=== PATIENT | female | born 1995 | race African-American/Black ===

== ENCOUNTER 2021-11-30 06:29 | Inpatient (IN) | payer OTHER ==
[2021-11-30] VITALS (17 sets, daily range): BP systolic 112–133; BP diastolic 56–81
[~2021-11-30] VITALS: Ht 160 cm; Wt 43.3 kg
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
[2021-11-30 07:30] LABS: BASOPHILS % (AUTO) 0.2 % (0.0-2.0); HEMATOCRIT 38 % (33-45); HEMOGLOBIN 12.3 g/dL (11.5-14.8); LYMPHOCYTES # (AUTO) 0.8 K/uL (0.8-4.8); LYMPHOCYTES % (AUTO) 4.6 % (20.0-44.0); MEAN CORPUSCULAR HGB CONC 33 g/dl (31.0-36.0); MEAN CORPUSCULAR VOLUME 89 fL (82-100); MONOCYTES # (AUTO) 0.6 K/uL (0.1-1.30); MONOCYTES % (AUTO) 3.9 % (2.0-12.0); NEUTROPHILS # (AUTO) 15.2 K/uL (1.8-8.9); NEUTROPHILS % (AUTO) 91.3 % (43.0-81.0); PLATELET COUNT (AUTO) 410 K/uL (150-450); RED BLOOD CELL COUNT(AUTO) 4.21 MIL/uL (4.0-5.2); WHITE BLOOD COUNT (AUTO) 16.6 K/uL (4.3-11.0)
--- NOTE | 2021-11-30 07:30 | NUR ---
COVID SWAB DONE AND SENT TO LAB
[2021-11-30] MEDS ORDERED: IV NS 0.9% 1,000 ML BAG IV ONE ×2 (08:00→08:30)
[2021-11-30] MEDS ORDERED: LORAZEPAM INJ 2 MG/ML VIAL IV ONE (08:00)
[2021-11-30 08:06] LABS: CALCIUM, SERUM 9.5 mg/dL (8.5-10.1); CARBON DIOXIDE 11 mmol/L (21-32); CHLORIDE 101 mmol/L (98-107); CREATININE 1.6 mg/dL (0.6-1.3); GLUCOSE 82 mg/dL (74-106); POTASSIUM 3.3 mmol/L (3.5-5.1); SODIUM SERUM 141 mmol/L (136-145); UREA NITROGEN, BLOOD 55 mg/dL (7-18)
[2021-11-30 08:12] LABS: ALANINE AMINOTRANSFERASE 74 U/L (12-78); ALBUMIN 4.9 g/dL (3.4-5.0); ALKALINE PHOSPHATASE 55 U/L (46-116); ASPARTATE AMINOTRANSFERASE 113 U/L (15-37); BILIRUBIN,DIRECT 0.1 mg/dL (0.0-0.2); BILIRUBIN,TOTAL 0.7 mg/dL (0.2-1.0); TOTAL PROTEIN, SERUM 8.4 g/dL (6.4-8.2)
[2021-11-30] MEDS ORDERED: PIPERACILLIN /TAZOBACTAM 3.375 G in IV D5W 50 ML IV ONE (08:30)
[2021-11-30] MEDS ORDERED: PIPERACILLIN /TAZOBACTAM 3.375 G VIAL IV ONE (08:39)
--- NOTE | 2021-11-30 08:40 | NUR ---
MOVE SHEET SUBMITTED AND CALLED FOR ICU BED.
[2021-11-30 08:41] LABS: ABG BASE EXCESS -14.9 mmol/L; ABG PCO2 22.2 mmHg (35.0-45.0); ABG PH 7.273 (7.350-7.450); ABG PO2 108.9 mmHg (75.0-100.0); COHb 0.3 % (0.5-1.5); MetHb 0.4 % (0.0-1.5); O2Hb 96.3 % (94.0-97.0); SITE, ABG Left Brachial; VENT MODE, BG room air
[2021-11-30 08:52] LABS: ACETAMINOPHEN < 2 ug/ml (10-30); ALCOHOL, BLOOD < 3 mg/dL (0-0)
--- NOTE | 2021-11-30 08:59 | NUR ---
Pipelines Supervisor From [facility] Giovany [phone] called. Clinical Information Faxed to [phone]
[2021-11-30 09:11] LABS: SERUM AMMONIA 47 umol/L (11-32)
--- NOTE | 2021-11-30 09:15 | NUR ---
URINE COLLECTED AND SENT TO LAB
[2021-11-30 09:26] LABS: CREATINE KINASE, TOTAL 1797 U/L (26-192)
--- NOTE | 2021-11-30 09:30 | NUR ---
DR. LAO SPEAKING WITH MITZY GAMBOA.
--- NOTE | 2021-11-30 09:36 | NUR ---
[facility] CALLED SEED CLEANER OPERATOR PAGED.
--- NOTE | 2021-11-30 09:38 | NUR ---
GOT ICU BED 254
--- NOTE | 2021-11-30 09:49 | NUR ---
REPORT GIVEN TO HOUSTON HARGROVE OF ICU
[2021-11-30] MEDS ORDERED: IV NS 0.9% 1,000 ML IV SCH (10:00)
[2021-11-30] MEDS ORDERED: ACETAMINOPHEN 325 MG TABLET PO PRN (10:00)
[2021-11-30] MEDS ORDERED: MAGNESIUM HYDROXIDE 30 ML UDC PO PRN (10:00)
[2021-11-30] MEDS ORDERED: MAG HYDROX/AL HYDROX/SIMETH 30 ML UDC PO PRN (10:00)
[2021-11-30] MEDS ORDERED: ONDANSETRON HCL/PF 4 MG/2 ML VIAL IVP PRN (10:00)
--- NOTE | 2021-11-30 10:01 | NUR ---
TRANSFERRED TO BED 254 IN STABLE CONDITION
[2021-11-30 10:21] LABS: BILIRUBIN,URINE SMALL (NEGATIVE); COLOR,URINE YELLOW (YELLOW); LEUKOCYTE ESTERASE ,URINE NEGATIVE (NEGATIVE); NITRITE, URINE NEGATIVE (NEGATIVE); PROTEIN,URINE 30 mg/dl (NEGATIVE); UGLUCOSE NEGATIVE (NEGATIVE); UROBILINOGEN,URINE 0.2 EU/dL (0.2)
[2021-11-30] MEDS ORDERED: LORAZEPAM INJ 2 MG/ML VIAL IV PRN (10:30)
[2021-11-30 10:44] LABS: BACTERIA,URINE None seen /HPF (None Seen); WBC,URINE 0-2 /HPF (0-3)
[2021-11-30 10:45] LABS: SQUAMOUS EPITHELIAL CELL,UR Rare /HPF (None Seen)
[2021-11-30 10:46] LABS: HYALINE CASTS, URINE Rare /LPF (None Seen); MUCUS,URINE Few /LPF (None Seen)
[2021-11-30] MEDS: POTASSIUM CL. PREMIX PERIPHER. 50 ML IV SCH ×4 (11:26→16:48)
[2021-11-30] MEDS: ZOSYN IVPB 3.375 G in IV D5W 50ml IV SCH ×3 (13:29→23:09)
[2021-11-30] MEDS ORDERED: IV NS 0.9% 1,000 ML IV PRN (16:00)
[2021-11-30] MEDS: IV D5/ 0.9% NACL 1,000 ML IV SCH (18:46)
--- NOTE | 2021-11-30 20:00 | NUR ---
RN NOTE PATIENT RESTING IN BED, AWAKE, ALERT AND ORIENTED X2-3. PERIODS OF CONFUSION. ON ROOM AIR, O2 SAT 100%. LESTER CATH PATENT AND INTACT, DRAINING URINE VIA GRAVITY. IV ACCESS ON RIGHT FA #20 AND LAC #20 , IVF D5NS @125 ML/HR. NO INFILTRATION NOTED. BED LOCKED AND IN LOWEST POSITION. CALL LIGHT WITHIN REACH. ALL NEEDS ANTICIPATED.
[2021-12-01] VITALS (22 sets, daily range): BP systolic 115–135; BP diastolic 31–83
[2021-12-01] MEDS: IV D5/ 0.9% NACL 1,000 ML IV SCH (02:54)
--- NOTE | 2021-12-01 04:19 | NUR ---
RN NOTE OFFERRED PATIENT CHANGE OF LINENS, WASHCLOTHS TO WASH FACE & BODY, ORAL CARE. PATIENT REFUSED AND STATED "NOT AT THIS TIME". ALSO REFUSED AM BLOOD DRAW, RISKS AND BENEFITS EXPLAINED. STILL STRONGLY REFUSED. LAB WILL TRY AGAIN LATER.
--- NOTE | 2021-12-01 04:30 | NUR ---
RN NOTE PATIENT REFUSED CXR. RISKS AND BENEFITS EXPLAINED, STRONGLY REFUSED AT THIS TIME.
--- NOTE | 2021-12-01 04:41 | NUR ---
THIS PATIENT IS REFUSING CX X-RAY AT THIS TIME ICU NURSE ED IS AWARE OF THE REFUSAL...
[2021-12-01] MEDS: ZOSYN IVPB 3.375 G in IV D5W 50ml IV SCH ×4 (05:01→23:11)
--- NOTE | 2021-12-01 07:08 | NUR ---
RN NOTE PATIENT SLEEPING IN BED. ON ROOM AIR, NO S/S OF ACUTE RESPIRATORY DISTRESS. O2 SAT 98%ON LESTER CATH NOTED, OUTPUT 500CC YELLOW URINE. URINE COLLECTED AND SENT TO LAB. IV ACCESS ON RIGHT FA #20 INFUSING D5NS @125 ML/HR. NO INFILTRATION NOTED. BED LOCKED AND IN LOWEST POSITION. CALL LIGHT WITHIN REACH. ENDORSED TO AM SHIFT.
--- NOTE | 2021-12-01 08:00 | NUR ---
RN NOTES RECEIVED PATIENT IN THE BED, ROOM AIR , NO ACUTE RESPIRATORY DISTRESS, BEDSIDE MONITOR SHOWS HR-98 SR, O2-99%. PATIENT A/O X2/3, NOTED SHE IS WORRIED ABOUT STD TEST, THAT WAS REASON WHY SHE GET HOSPITALIZED. IV ACCESS ON RIGHT FA INFUSING D5NS @125ML/HR INTACT. SEEN LABELING STRATEGIST Dr ARRIAZA AND NEW ORDER IS ABG AT THIS TIME. ORDER TAKEN AND CARRIED OUT. RT NOTIFIED. PATIENT NPO, LESTER HAS NO OUTPUT, CALL LIGHT WITHIN TO REACH. PATIENT STATE" I WANTS TO DO MY DAILY HYGIENE , AND BRUSH HAIR". ALL SUPPLIES GIVEN, WILL FOLLOW UP.
[2021-12-01] MEDS ORDERED: LORAZEPAM INJ 2 MG/ML VIAL IVP ONE (08:14)
[2021-12-01 08:47] LABS: ABG BASE EXCESS -4.5 mmol/L; ABG OXYGEN SATURATION 96.9 % (92.0-98.5); ABG PCO2 29.2 mmHg (35.0-45.0); AaDO2 14.8 mmHg; COHb 0.3 % (0.5-1.5); MetHb 0.1 % (0.0-1.5); O2Hb 96.5 % (94.0-97.0); SITE, ABG Right Brachial; VENT MODE, BG room air
--- NOTE | 2021-12-01 09:00 | NUR ---
rn notes patient more awake, responding internal stimuli, seen hospitalist patient regular diet, offered some snacks. refused pain, get order of ID consult, and psych consult. will follow up.
[2021-12-01 09:41] LABS: HEMATOCRIT 28 % (33-45); HEMOGLOBIN 9.6 g/dL (11.5-14.8); LYMPHOCYTES # (AUTO) 0.9 K/uL (0.8-4.8); LYMPHOCYTES % (AUTO) 10.4 % (20.0-44.0); MEAN CORPUSCULAR HGB CONC 34 g/dl (31.0-36.0); MEAN CORPUSCULAR VOLUME 88 fL (82-100); MONOCYTES # (AUTO) 0.6 K/uL (0.1-1.30); MONOCYTES % (AUTO) 6.9 % (2.0-12.0); NEUTROPHILS % (AUTO) 82.7 % (43.0-81.0); PLATELET COUNT (AUTO) 278 K/uL (150-450); RED BLOOD CELL COUNT(AUTO) 3.22 MIL/uL (4.0-5.2); WHITE BLOOD COUNT (AUTO) 8.5 K/uL (4.3-11.0)
[2021-12-01 10:14] LABS: CALCIUM, SERUM 7.8 mg/dL (8.5-10.1); CREATININE 0.7 mg/dL (0.6-1.3); MAGNESIUM 2.3 mg/dL (1.8-2.4); PHOSPHORUS 1.6 mg/dL (2.5-4.9); POTASSIUM 3.1 mmol/L (3.5-5.1)
[2021-12-01] MEDS ORDERED: POTASSIUM PHOSPHATE MM 15 MMOL in IV NS 0.9% 250 ML IV SCH (11:00)
[2021-12-01] MEDS ORDERED: POTASSIUM CHLORIDE 20 MEQ TAB.PRT.SR PO ONE (11:00)
[2021-12-01] MEDS: IV D5/0.45 NACL 1,000 ML IV SCH ×2 (11:37→21:04)
[2021-12-01 12:27] LABS: ALBUMIN 3.4 g/dL (3.4-5.0); BILIRUBIN,DIRECT 0.1 mg/dL (0.0-0.2); BILIRUBIN,TOTAL 0.6 mg/dL (0.2-1.0); TOTAL PROTEIN, SERUM 6.2 g/dL (6.4-8.2)
[2021-12-01] MEDS: POTASSIUM PHOSPHATE MM 7.5 MMOL in IV NS 0.9% 100 ML IV SCH ×2 (12:29→16:01)
--- NOTE | 2021-12-01 18:00 | NUR ---
RN NOTES PATIENT STABLE REFUSED PAIN, RESPONDING INTERNAL STIMULI, NO ACUTE RESPIRATORY DISTRESS. DUE MEDICATION ADMINISTERED, LESTER OUTPUT WAS 200ML. ENDORSED ONCOMING NURSE DARNELL.
[2021-12-01 18:36] LABS: CREATININE, URINE 118.7 MG/DL (30.0-125.0); URINE TOTAL PROTEIN 51.8 mg/dL (0-11.9)
--- NOTE | 2021-12-01 19:43 | NUR ---
RN NOTE PATIENT MORE AWAKE, ALERT AND ORIENTED X2. TALKING TO SELF. ABLE TO MAKE NEEDS KNOWN. ON ROOM AIR, O2 SAT 99%. NO S/S OF RESPIRATORY DISTRESS. LESTER CATH PATENT AND INTACT, DRAINING URINE VIA GRAVITY. IV ACCESS ON RIGHT FA #20 IVF D5 1/2 NS @100 ML/HR. NO INFILTRATION NOTED. BED LOCKED AND IN LOWEST POSITION. CALL LIGHT WITHIN REACH. ALL NEEDS ANTICIPATED.
--- NOTE | 2021-12-01 20:01 | NUR ---
RN NOTE PATIENT REFUSING TO KEEP BLOOD PRESSURE CUFF ON. INSISTED TO CHECK BP AND THEN REMOVE CUFF, PATIENT AGREED. BLOOD PRESSURE 127/68.
[2021-12-02] VITALS (11 sets, daily range): BP systolic 99–118; BP diastolic 54–78
[2021-12-02 03:09] LABS: CREATININE KINASE (CK),MB 2.4 ng/mL (0.0-5.3)
[2021-12-02 04:38] LABS: BASOPHILS % (AUTO) 0.3 % (0.0-2.0); EOSINOPHILS % (AUTO) 0.5 % (0.0-6.0); HEMATOCRIT 28 % (33-45); HEMOGLOBIN 9.5 g/dL (11.5-14.8); LYMPHOCYTES # (AUTO) 1.6 K/uL (0.8-4.8); LYMPHOCYTES % (AUTO) 32.3 % (20.0-44.0); MEAN CORPUSCULAR HGB CONC 34 g/dl (31.0-36.0); MEAN CORPUSCULAR VOLUME 88 fL (82-100); MONOCYTES # (AUTO) 0.5 K/uL (0.1-1.30); MONOCYTES % (AUTO) 9.4 % (2.0-12.0); NEUTROPHILS # (AUTO) 2.8 K/uL (1.8-8.9); NEUTROPHILS % (AUTO) 57.5 % (43.0-81.0); PLATELET COUNT (AUTO) 253 K/uL (150-450); RED BLOOD CELL COUNT(AUTO) 3.19 MIL/uL (4.0-5.2); WHITE BLOOD COUNT (AUTO) 4.9 K/uL (4.3-11.0)
[2021-12-02 04:52] LABS: CALCIUM, SERUM 7.9 mg/dL (8.5-10.1); CREATININE 0.4 mg/dL (0.6-1.3)
[2021-12-02] MEDS ORDERED: IV NS 0.9% 250 ML IV PRN (05:00)
[2021-12-02] MEDS: ZOSYN IVPB 3.375 G in IV D5W 50ml IV SCH (05:18)
[2021-12-02 05:41] LABS: POTASSIUM 2.6 mmol/L (3.5-5.1)
[2021-12-02] MEDS: IV D5/0.45 NACL 1,000 ML IV SCH (06:37)
[2021-12-02] MEDS: POTASSIUM CHLORIDE 10 MEQ/50 ML PREMIXED IVPB FOR PERIPHERAL LINE IV SCH ×4 (06:39→09:55)
--- NOTE | 2021-12-02 07:00 | NUR ---
RN NOTE PATIENT RESTING IN BED. ON ROOM AIR, O2 SAT 99%. NO SOB NOTED. LESTER CATH OUTPUT 400CC CLOUDY YELLOW URINE. IV ACCESS ON RIGHT FA #20 IVF D5 1/2 NS @100 ML/HR. NO INFILTRATION NOTED. ABLE TO ASSIST PATIENT WITH BED BATH, CHANGE OF LINENS OVER NIGHT. BED LOCKED AND IN LOWEST POSITION. CALL LIGHT WITHIN REACH. WILL ENDORSE TO AM SHIFT.
--- NOTE | 2021-12-02 07:30 | NUR ---
RN OPENING NOTE RECEIVED PATIENT IN BED, AWAKE, ALERT AND ORIENTED X2-3. PERIODS OF CONFUSION, MUMBLING WORDS TO HERSELF. ON ROOM AIR, O2 SAT 99%. BREATHING EVEN AND UNLABORED. NO S/S OF DISTRESS NOTED AT THE TIME. LESTER CATH PATENT AND INTACT, DRAINING URINE VIA GRAVITY. IV ACCESS ON RIGHT FA #20 AND LAC #20 , IVF D51/2NS @100 ML/HR. NO INFILTRATION NOTED. ALL SAFETY MEASURES IN PLACE. BED LOCKED AND IN LOWEST POSITION. CALL LIGHT WITHIN REACH. ALL NEEDS ANTICIPATED. WILL CONTINUE TO MONITOR PATIENT CLOSELY.
[2021-12-02] MEDS ORDERED: POTASSIUM CHLORIDE 20 MEQ TAB.PRT.SR PO ONE (09:00)
--- NOTE | 2021-12-02 09:00 | NUR ---
RN NOTES SEEN BY DR. MCCLELLAN, WITH NEW ORDERS TO D/C LESTER CATHETER, DECREASE IV FLUIDS OF D5 1/2NS TO INFUSE AT 50ML/HR, AND FOR LAB DRAW, NOTED AND CARRIED OUT. ALL PATIENT NEEDS ANTICIPATED. WILL CONTINUE TO MONITOR PATIENT.
[2021-12-02] MEDS: OLANZAPINE 2.5 MG TABLET PO SCH ×3 (09:30→16:40)
--- NOTE | 2021-12-02 13:56 | NUR ---
RN NOTES GRADES 1 THRU 5 TEACHER CAME TO DRAW BLOOD FOR PATIENT, PATIENT TOLD TECH TO COME BACK LATER IN AN HOUR AFTER SHE FINISH EATING.
[2021-12-02 15:13] LABS: CALCIUM, SERUM 8.8 mg/dL (8.5-10.1); CREATININE 0.6 mg/dL (0.6-1.3); MAGNESIUM 2.5 mg/dL (1.8-2.4); POTASSIUM 3.7 mmol/L (3.5-5.1)
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
--- NOTE | 2021-12-02 17:42 | NUR ---
RN NOTE PATIENT TO BE TRANSFER TO [facility] ROOM 311-2, REPORT GIVEN TO VIDA HARGROVE.
--- NOTE | 2021-12-02 18:00 | NUR ---
RN NOTE PATIENT WAS TRANSFERRED TO [facility] IN STABLE CONDITION. NO SOB OR ANY ACUTE DISTRESS NOTED DURING TRANSFER. PATIENT WAS TRANSFERRED WITH HER BELONGINGS.
--- NOTE | 2021-12-02 18:33 | NUR ---
MS/RN RECEIVING NOTES RECEIVED PATIENT A TRANSFER FROM ICU VIA GURNEY. PATIENT IS AWAKE, ALERT AND ORIENTED X2, ABLE TO MAKE NEEDS KNOWN. STABLE ON ROOM AIR. PATIENT IS AMBULATORY. SKIN IS INTACT AND WARM TO TOUCH. IV ACCESS ON RIGHT FA #20G IS INTACT AND HAS A RUNNING IV D5 1/2 NS @50ML/HR. ORIENTED PATIENT IN THE UNIT. SAFETY MEASURES IN PLACED: BED LOCKED ON LOWEST POSITION, SIDE RAILS UPX2, HOB ELEVATED, CALL LIGHT WITHIN REACH. ALL PM MEDS GIVEN AT THE ICU. WILL CONTINUE WITH THE PLAN OF CARE.
--- NOTE | 2021-12-02 19:30 | NUR ---
MS RN OPENING NOTES RECEIVED PATIENT AWAKE IN BED. A/O X2-3. PT STABLE ON ROOM AIR. NO SOB OR S/S OF RESPIRATORY DISTRESS. IV ACCESS RFA 20 GAUGE, INTACT AND RUNNING IV D5 1/2 NS @50ML/HR. SAFETY PRECAUTIONS IN PLACE. BED IN LOWEST LOCKED POSITION, HOB ELEVATED, SIDE RAILS UP X2, AND CALL LIGHT AND TABLE WITHIN REACH. WILL CONTINUE WITH PLAN OF CARE.
[2021-12-03] MEDS: IV D5/0.45 NACL 1,000 ML IV SCH (00:12)
[2021-12-03 06:27] LABS: BASOPHILS % (AUTO) 0.3 % (0.0-2.0); EOSINOPHILS % (AUTO) 2.4 % (0.0-6.0); HEMATOCRIT 31 % (33-45); HEMOGLOBIN 10.8 g/dL (11.5-14.8); LYMPHOCYTES # (AUTO) 1.5 K/uL (0.8-4.8); LYMPHOCYTES % (AUTO) 37.6 % (20.0-44.0); MEAN CORPUSCULAR HGB CONC 35 g/dl (31.0-36.0); MEAN CORPUSCULAR VOLUME 88 fL (82-100); MONOCYTES # (AUTO) 0.3 K/uL (0.1-1.30); MONOCYTES % (AUTO) 7.6 % (2.0-12.0); NEUTROPHILS % (AUTO) 52.1 % (43.0-81.0); PLATELET COUNT (AUTO) 292 K/uL (150-450); RED BLOOD CELL COUNT(AUTO) 3.51 MIL/uL (4.0-5.2); WHITE BLOOD COUNT (AUTO) 3.9 K/uL (4.3-11.0)
[2021-12-03 06:35] LABS: ALBUMIN 3.3 g/dL (3.4-5.0); CALCIUM, SERUM 9.3 mg/dL (8.5-10.1); CREATININE 0.5 mg/dL (0.6-1.3); MAGNESIUM 2.5 mg/dL (1.8-2.4); POTASSIUM 3.8 mmol/L (3.5-5.1)
--- NOTE | 2021-12-03 06:42 | NUR ---
MS RN CLOSING NOTES PATIENT AWAKE IN BED. A/O X2-3. PT STABLE ON ROOM AIR. NO SOB OR S/S OF RESPIRATORY DISTRESS. IV ACCESS RFA 20 GAUGE, INTACT AND RUNNING IV D5 1/2 NS @50ML/HR. ALL NEEDS MET AT THIS TIME. SAFETY PRECAUTIONS IN PLACE AT ALL TIMES. BED IN LOWEST LOCKED POSITION, HOB ELEVATED, SIDE RAILS UP X2, AND CALL LIGHT AND TABLE WITHIN REACH. WILL ENDORSE TO ONCOMING NURSE FOR DARNELL.
[2021-12-03 07:02] LABS: BILIRUBIN,TOTAL 0.5 mg/dL (0.2-1.0); PHOSPHORUS 2.7 mg/dL (2.5-4.9); TOTAL PROTEIN, SERUM 6.4 g/dL (6.4-8.2)
--- NOTE | 2021-12-03 08:05 | NUR ---
RN OPENING NOTES PATIENT AWAKE, A/O X2-3. NO S/S OF PAIN NOTED AT THIS TIME. PATIENT ON ROOM AIR, NO DISTRESS OR SHORTNESS OF BREATH. IV ACCESS RFA #20G, INTACT, PATENT AND FLUSHING WELL. FALL AND SAFETY MEASURES IN PLACE, BED ALARM ON, BED IN LOW AND LOCK POSITION, CALL LIGHT AND TABLE WITHIN EASY REACH, SIDE RAILS UP X2. WILL CONTINUE TO MONITOR.
[2021-12-03 08:15] VITALS: BP 117/69
[2021-12-03] MEDS ORDERED: Olanzapine PO (08:27)
[2021-12-03] MEDS ORDERED: OLAN2.5T3 PO (08:27)
[2021-12-03] MEDS: OLANZAPINE 2.5 MG TABLET PO SCH (09:00)
--- NOTE | 2021-12-03 09:03 | NUR ---
RN NOTE PATIENT REFUSED HER MORNING MEDICATION ZYPREXA. SHE SAID SHE DID NOT WANT IT AT THE MOMENT MAYBE SHE WILL CONSIDER IT TAKING THE MEDICATION AT SOME OTHER TIME. WILL TRY TO OFFER MEDICATION TO PATIENT AGAIN.
[2021-12-03 10:00] VITALS: BP 117/69
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
== END 2021-12-03 13:45 | disposition home or self-care (01) | DRG 351 ==
LOC: EDBD 06:31 → ER 06:31 → ICU 09:48 → MED 12-02 18:09
PROVIDERS: ADMIT Internal Medicine; ATTEND Internal Medicine
DX: M62.82 Rhabdomyolysis (principal); N17.0 Acute kidney failure with tubular necrosis; G93.41 Metabolic encephalopathy; G92.8 Other toxic encephalopathy; T68.XXXA Hypothermia, initial encounter; E87.2 Acidosis; E87.0 Hyperosmolality and hypernatremia; E83.39 Other disorders of phosphorus metabolism; E86.0 Dehydration; J98.2 Interstitial emphysema; D64.9 Anemia, unspecified; F42.9 Obsessive-compulsive disorder, unspecified; Z59.00 Homelessness unspecified; E87.6 Hypokalemia; F31.9 Bipolar disorder, unspecified; R91.8 Other nonspecific abnormal finding of lung field; R00.0 Tachycardia, unspecified; F31.10 Bipolar disorder, current episode manic without psychotic features, unspecified; F39 Unspecified mood [affective] disorder; F43.10 Post-traumatic stress disorder, unspecified; T73.0XXA Starvation, initial encounter; T74.21XA Adult sexual abuse, confirmed, initial encounter; X58.XXXA Exposure to other specified factors, initial encounter
CPT/HCPCS: 36415; 36600; 70450-TC; 71045-TC; 80048-TC; 80053-TC; 80076-TC; 81001; 82010-TC; 82140-TC; 82533; 82550-TC; 82553; 82570-TC; 82693; 82803-TC; 83605-TC; 83690-TC; 83735-TC; 84100-TC; 84155-TC; 84300-TC; 84443-TC; 84702-TC; 84703-TC; 85025-TC; 86592; 86704; 86803; 87040-TC; 87081-TC; 87340; 87491; 87591; 87806; 97116-TC; 97530-TC; C9803; G0378; G0480; J2060; J2543; J3480; J3490; J7030; J7042; J7050; J7060